=== PATIENT | female | born 1995 | race African-American/Black ===

== ENCOUNTER 2018-09-21 06:04 | Day surgery (SDC) | payer OTHER ==
[2018-09-19 12:12] LABS: Urine Appearance CLEAR; Urine Bilirubin NEGATIVE (NEG); Urine Blood NEGATIVE (NEG); Urine Color YELLOW; Urine Glucose NEGATIVE (NEG); Urine Protein NEGATIVE (NEG); Urine Specific Gravity 1.015 (1.005-1.030); Urine Urobilinogen 0.2 mg/dL (0.2-1.0); Urine pH 5.5 (5.0-7.0)
[2018-09-19 12:15] LABS: Urine Microscopic Reflex NO UMIC
[2018-09-19 15:00] LABS: Absolute Monocytes 0.6 K/uL (0.1-1.3); Absolute Neutrophil 4.3 K/uL (1.8-8.0); Eosinophils % 1.4 % (0-4.4); Hematocrit 38.6 % (36.0-45.0); Lymphocytes % 28.7 % (15.3-44.8); MPV 8.2 fL (7.6-11.3); RBC Red Blood Cell Count 4.74 M/uL (3.86-4.86)
[2018-09-21 06:28] LABS: Specific Gravity 1.015 (1.005-1.030)
[2018-09-21] MEDS ORDERED: Ringers Lactate 1,000 ML IV ONE ×2 (06:34→09:16)
[2018-09-21] MEDS ORDERED: NA CHLORIDE 0.9% 1,000 ML ONE (06:58)
[2018-09-21] MEDS ORDERED: ROCURONIUM 50 MG/5 ML VIAL IV ONE (07:15)
[2018-09-21] MEDS ORDERED: ONDANSETRON 4 MG/2 ML VIAL ONE (07:15)
[2018-09-21] MEDS ORDERED: MIDAZOLAM HCL 2 MG/2 ML INJ ONE (07:15)
[2018-09-21] MEDS ORDERED: LIDOCAINE 2% MPF 5 ML VIAL ONE (07:15)
[2018-09-21] MEDS ORDERED: PROPOFOL 200 MG/20 ML VIAL IV ONE (07:15)
[2018-09-21] MEDS ORDERED: FENTANYL CITR 250 MCG/5 ML ONE (07:15)
[2018-09-21] MEDS ORDERED: KETOROLAC 30 MG/ML INJ ONE (09:15)
[2018-09-21] MEDS: MORPHINE 4 MG/ML SYR ONE ×2 (10:09→10:14)
[2018-09-21] MEDS ORDERED: HYDROCODONE/APAP 5/325 MG TAB ONE (11:27)
--- NOTE | 2018-09-21 13:34 | OP ---
Date of Procedure: 09/21/2018 Surgeon: Hafsa Pereira MD Preoperative Diagnoses: Menorrhagia, pelvic pain, and dysmenorrhea. Postoperative Diagnoses: Menorrhagia, pelvic pain, dysmenorrhea, endometriosis, and leiomyoma. Procedures Performed: Diagnostic hysteroscopy, diagnostic laparoscopy, endometriosis excision, myome ctomy. Specimens: Endometriosis from the rectovaginal septum, left uterosacral and left lateral wall, and t he leiomyoma from the anterior wall of the uterus. Complications: None. Drains: None. Condition: Stable. Findings: The appendix was normal. Anterior tiny leiomyoma. Rectovaginal septum endometriosis in t he distal part of the septum, not infiltrating all the way through, complete excision was performed, then central left uterosacral ligament and left lateral wall endometriotic implants. These were all well visualized and removed completely. The myoma anteriorly was removed as well with the help of mo nopolar needle. The patient is a 22-year-old 0, who has presented with pelvic pain, has had cysts on the side . However, her pain was mostly dysmenorrhea, now going into the non-menstrual time of her cycle. Bernard rose has been placed on oral contraceptives. This has helped her dysmenorrhea. However, her pelvic florencio n intermittently recurs. Her bleeding has not gotten any better despite the OC, so she is undergoing a von Willebrand factor deficiency workup. We discussed the possibility of endometriosis and the option. Oral contraceptives are not optimal fo r her management of her pain, especially the noncyclic pain. So discussed about options and at times when her pain is really bad, she is unable to go to school. 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 This will also serve the purpose of getting an accurate diagnosis an d removal of endometriosis. We can subsequently follow this with the help of oral contraceptives or a GnRH antagonist. We discussed all the agonist, antagonist therapy options upfront as well and hardeep ent decided to proceed with surgery. She was consented and brought to the OR. Description Of Procedure: After informed consent was re-verified, she was taken back to OR, placed i n a supine fashion on the operating table. After general anesthesia was given, she was placed in a d orsal lithotomy position. Arms were tucked by the sides. Pelvic exam performed. Uterus anteflexed. No adnexal masses were palpable. The posterior wall appeared to be thickened, but I did not apprec iate any nodularity. Abdomen, vulva, vagina, and perineum were prepped and draped in a sterile fashion. No antibiotics we re given to this patient. A speculum was used to expose the cervix. Diagnostic hysteroscopy was per formed with a SlimLine hysteroscope, normal saline, and 30-degree lens. The cavity was undistorted. No anatomical malformations. Both tubal ostia were visualized and normal. No intracavitary abnorma lities of the endometrium. The scope was removed. Diagnostic VCare was introduced. Mckinley was place d and attached to a drainage bag. All these were then covered with a towel and gloves changed. We w ent up abdominally. Infraumbilical 1 cm incision was made with a scalpel using the open laparoscopy technique. Fascia was picked up with 2 Joy and incised. Tagged 0 Vicryl sutures were placed on e ach side. Peritoneum entered bluntly. S retractors placed. Site of entry checked and unremarkable. Upper abdominal cavity, liver, gallbladder, peritoneal surface, omentum, and the right lower quadra nt, her appendix, all were completely unremarkable. The patient was placed in Trendelenburg position . The 5 mm suprapubic and left lower quadrant ports were placed under direct vision. Her anterior a bdominal wall had fatty tissue as well from her morbid obesity. The patient had to be placed in stee p Trendelenburg position. The sigmoid colon was redundant and in the pelvic cavity, this had to be r etracted superiorly for me to inspect the pelvic cavity. Both ovaries, tubes unremarkable, mesosalpi nx, anterior broad ligament, anterior cul-de-sac all unremarkable. Right lateral wall unremarkable a s well. Ureters undistorted in their course. The endometriotic implant present was in the rectovagi nal on the posterior vaginal wall, deep and infiltrating. This was about a 2 cm lesion between the u terosacral above the level of the reflection of the rectum. The other implants were on the middle part of the uterosacral ligaments and lateral aspect of the [place] rosacral above the level of the ureter, all these were deep infiltrating implants. So first, the rec tovaginal septum was picked up along with the peritoneum as the implants were infiltrating into. It was excised with the help of monopolar needle and excised entirely peritoneum on the reflection of th e rectum was opened up and then the implant excised by cutting superiorly and taking out the entire i mplant in a couple of pieces. All these were handed off for permanent pathology. Underlying tissue appeared to be completely unremarkable and smooth without any nodularity. There was concern for inte grity of the rectovaginal septum after the excision, and therefore, a 3-0 Monocryl suture was placed in a [id number] fashion to close the rectovaginal septal defect from side to side. On the left side, the peritoneum lateral to the uterosacral was picked up, excision was started super iorly medially over the uterosacral. The implants were excised completely from the uterosacral as we ll as the left lateral wall. The dissection was performed on underlying tissues, peritoneum was pick ed up, and all this was excised with a monopolar needle. The specimens were removed. They were retr ieved and handed out for permanent pathology. Thorough irrigation and suction were performed. No ev idence of electrical, mechanical, or thermal injury to the ureter or the bowel wall. Since the sigmo id appeared to be redundant and the way, I just made sure that I run the sigmoid, making sure there w as no injury from the instruments that were placed through the left lower quadrant port. After thoro ugh irrigation and suction were performed again, Interceed was placed anteriorly and posteriorly to p revent any adhesions. The anterior uterine wall had a small leiomyoma that I excised which was subse ann and hemostasis with the monopolar needle. This was covered with Interceed. After gas was desu fflated, all the trocars were removed. The fascia at the umbilicus closed with the help of a 0 Vicry l in a [id number] fashion, simple 0 Vicryl stitch in the subcutaneous tissues and 4-0 Monocryl t o close the rest of the skin incisions. Mckinley removed. VCare removed. Instrument, needle, and spon ge counts were done and were correct at the end of the case. The patient tolerated the procedure well. She wi ll follow up with me in 1 week. RODRIGO/BETH Voice ID: [id number] Report ID: [id number]
== END 2018-09-21 12:18 | disposition home or self-care (01) ==
LOC: OR 06:04
PROVIDERS: ATTEND Obstetrics & Gynecology
PROC: 0UBF4ZZ Excision of Cul-de-sac, Percutaneous Endoscopic Approach (ICD-10-PCS; 2018-09-21)
PROC: 0UB94ZZ Excision of Uterus, Percutaneous Endoscopic Approach (ICD-10-PCS; 2018-09-21)
PROC: 0DBP4ZZ Excision of Rectum, Percutaneous Endoscopic Approach (ICD-10-PCS; principal; 2018-09-21 07:00)
DX: N80.3 Endometriosis of pelvic peritoneum (principal); N80.0 Endometriosis of uterus; N80.4 Endometriosis of rectovaginal septum and vagina; D25.9 Leiomyoma of uterus, unspecified; N92.0 Excessive and frequent menstruation with regular cycle; N94.6 Dysmenorrhea, unspecified; E66.09 Other obesity due to excess calories
CPT/HCPCS: 36415; 81003; 81025; 85025; 86850; 86900; 86901; 88305; J2250; J2405; J2704; J3010; J7030